=== PATIENT | female | born 1945 | race Caucasian/White ===

== ENCOUNTER 2019-10-21 06:29 | Inpatient (IN) ==
--- NOTE | 2019-09-26 23:09 | PAT Medication Instructions ---
Medication Instructions Date of Service September 26, 2019 Home Medications Medications Cholesterol Complete 3 cap PO 1200 amlodipine 5 mg PO 1200 cholecalciferol (vitamin D3) [Vitamin D3] 3,000 unit PO 1200 coQ10 (ubiquinol) 200 mg PO 1200 levothyroxine 50 mcg PO QAM magnesium 250 mg PO 1200 metoprolol succinate 25 mg PO 1200 omega 4-ibw-kzg-fish oil [[place]-3] 2 cap PO 1200] STOP taking 2 weeks before surgery Cholesterol Complete 3 cap PO 1200 coQ10 (ubiquinol) 200 mg PO 1200 omega 8-vif-iti-fish oil [[place]-3] 2 cap PO 1200] DO NOT take the morning of surgery cholecalciferol (vitamin D3) [Vitamin D3] 3,000 unit PO 1200 magnesium 250 mg PO 1200 Take morning of surgery With a small sip of water, OTHERWISE NOTHING TO EAT OR DRINK AFTER MIDNIGHT: amlodipine 5 mg PO 1200 levothyroxine 50 mcg PO QAM metoprolol succinate 25 mg PO 1200 Other Notes If you have any questions please call us at [phone] or [phone] or [phone] or [phone]
--- NOTE | 2019-09-27 11:55 | Anesthesiology Consultation ---
Date of Service September 27, 2019 Assessment & Plan (1) Encounter for pre-operative examination: Chart Review Chart Review: Acceptable Risk for Surgery and Patient seen in Pre Admission Testing Teaching & Discussion Instructed NPO after midnight before surgery, except medications with 15 cc of water. Medication instructions provided according to the PAT guidelines. History Surgery Operation Date: 10/21/19 07:00 Proposed Procedures p Right Anterior Total Hip Arthroplasty - Constantine Hernandez, Height/Weight Height: 5 ft 2 in Weight: 85 kg Allergies Allergy/AdvReac Type Severity Reaction Status Date / Time codeine AdvReac Mild SICK TO Verified 09/27/19 10:32 STOMACH Medications Home Medications Medication Instructions Recorded Confirmed Last Taken Cholesterol Complete 3 cap PO 1200 09/21/19 09/27/19 Unknown amlodipine 5 mg PO 1200 09/21/19 09/27/19 Unknown cholecalciferol (vitamin D3) 3,000 unit PO 1200 09/21/19 09/27/19 Unknown [Vitamin D3] coQ10 (ubiquinol) 200 mg PO 1200 09/21/19 09/27/19 Unknown levothyroxine 50 mcg PO QAM 09/21/19 09/27/19 Unknown magnesium 250 mg PO 1200 09/21/19 09/27/19 Unknown metoprolol succinate 25 mg PO 1200 09/21/19 09/27/19 Unknown omega 4-sax-wdh-fish oil [[place]-3] 2 cap PO 1200 09/21/19 09/27/19 Unknown Past Medical History Medical History Hyperlipidemia Hypertension Hypothyroidism Osteoarthritis Urinary frequency Exercise / Class Metabolic Activity III < 4 Walking/Shop/Light housework (Denies CP or SOB with 1 FOS but not doing 2/2 limited mobility 2/2 hip pain; using cane for ambulation) Past Family History Family History Grandfather (Paternal) Family history of diabetes mellitus Mother Family history of diabetes mellitus Past Surgical History Surgical History History of colonoscopy History of neck surgery R parotidectomy [place] teeth removed Past Anesthesia History No Hx of Anesthesia Complications and No Family Hx of Anesthesia Complications History of PONV No Hx of PONV and No Hx of Motion Sickness Social History Smoking Status: Never smoker Do You Dip or Chew Tobacco: No Hx Alcohol Use: Yes Alcohol type: wine alcohol intake frequency: holidays/special occasions only Hx Substance Use: No substance use type: does not use Review of Systems Pt denies any recent chest pain, shortness of breath, palpitations, cough, fever or URI. Physical Exam Vital Signs BP: 137/80 P: 69bpm SPO2: 95% RA T: 98.3 F R: 16 ENMT Mouth: + dental restorations (few crowns on molars); no chipped teeth and no loose teeth Thyromental Distance: > or= 3.5 Finger Breadths (4) Mallampati Class: III Neck + short neck and + limited neck extension Respiratory normal respiratory effort Auscultation: lungs clear to auscultation bilaterally Cardiovascular Rate/Rhythm: regular rate and regular rhythm Heart Sounds: no murmur Vessels: no carotid bruit Extremities: no edema Testing Laboratory Results 09/27/19 12:07 09/27/19 12:07 PT 10.1 Seconds (9.0-12.0) 09/27/19 12:07 INR 1.0 (0.9-1.1) 09/27/19 12:07 APTT 26.8 Seconds (21.0-31.0) 09/27/19 12:07 Blood Type O Positive 09/27/19 12:07 Antibody Screen NEGATIVE 09/27/19 12:07 Electrocardiogram Date: 09/27/19 Findings: + NSR @ (73bpm) LAD. Nonspecific ST abnormality. No significant change from 2009 EKG. Chest X-Ray Date: 09/27/19 Findings: + NAD
[2019-09-27 13:27] LABS: Basophils # (auto) 0.03 K/uL (0-0.2); Basophils % (auto) 0.5 %; Eosinophils # (auto) 0.12 K/uL (0-0.5); Eosinophils % (auto) 1.9 %; Hematocrit (blood only) 43.3 % (37-47); Hemoglobin 14.5 g/dL (12.0-16.0); Immature Granulocytes # (auto) 0.01 K/uL (0.00-0.02); Immature Granulocytes % (auto) 0.2 %; Lymphocytes # (auto) 2.22 K/uL (1.2-3.4); Lymphocytes % (auto) 34.7 %; Mean Corpuscular Hemoglobin 31.7 pg (25-34); Mean Corpuscular Hgb Conc 33.5 g/dL (32-36); Mean Corpuscular Volume 94.5 fL (80-100); Mean Platelet Volume 9.7 fL (7.4-10.4); Monocytes # (auto) 0.52 K/uL (0.11-0.59); Monocytes % (auto) 8.1 %; Neutrophils % (auto) 54.6 %; Platelet Count 274 K/uL (130-400); RDW Coefficient of Variation 14.4 % (11.5-14.5); RDW Standard Deviation 49.8 fL (36.4-46.3); Red Blood Count 4.58 M/uL (4.2-5.4)
--- NOTE | 2019-09-27 13:38 | XRay Report ---
XR chest Pre-admission PA/Lat CLINICAL HISTORY: Preoperative chest COMPARISON STUDY: No previous studies for comparison. FINDINGS: The cardiac and mediastinal contours are normal. There is no evidence of focal pulmonary co nsolidation. There is no evidence of failure. No pleural effusions are visualized.[ IMPRESSION: No active disease in the chest. Electronically signed by: Jose Juan Hale M.D. 09/27/2019 1:37 PM
[2019-09-27 13:39] LABS: BUN Creatinine Ratio 18.6 (10-20); Calcium 9.7 mg/dl (8.5-10.1); Creatinine Clr Calc Pharmacy 58.9 ml/min; Est GFR (African American) 77.7; Potassium 4.1 mmol/L (3.5-5.1)
[2019-09-27 13:41] LABS: Partial Thromboplastin Time 26.8 Seconds (21.0-31.0); Prothrombin Time 10.1 Seconds (9.0-12.0)
[~2019-10-21 06:29] MED LIST: ACETAMINOPHEN 500 MG TAB PO SCH; BUPIVACAINE 0.5 % 5 MG/1 ML PF 10ML VIAL ONE; CEFAZOLIN 2000MG 2,000 MG/15 ML SYR IV SCH; FAMOTIDINE 20 MG TAB PO SCH; GABAPENTIN 300 MG CAP PO SCH; LR 500ML BOLUS, THEN 15ML/HR IV SCH; LR 60ML/HR IV SCH; ROPIVACAINE 0.5% HCL/PF 150 MG, BUPIVACAINE 0.5% MPF 30 ML, EPINEPHrine 30MG/30ML (OR U... INSTIL SCH; TRANEXAMIC ACID 1,000 MG **IV Pre-op IV SCH; dexAMETHasone 4 MG TAB PO SCH
--- NOTE | 2019-10-21 06:51 | History & Physical Report ---
Date of Service October 21, 2019 Assessment & Plan (1) Osteoarthritis of right hip: We will proceed with a right anterior total hip arthroplasty. Postoperatively she will be placed on aspirin for DVT prophylaxis and kept overnight in the hospital for postoperative medical management. She plans to use outpatient physical therapy upon discharge. Present on Admission?: Yes History of Present Illness Chief Complaint: Primary osteoarthritis of the right hip Primary Care Provider: NIMESH Argueta Haleigh is a pleasant 74-year-old female who presented my office with chronic increasing right hip and groin pain. X-rays and clinical examination have been diagnostic for primary osteoarthritis of the right hip. After failing conservative treatment, she has elected to proceed with a right anterior total hip arthroplasty. Allergies Allergy/AdvReac Type Severity Reaction Status Date / Time codeine AdvReac Mild SICK TO Verified 10/10/19 11:00 STOMACH Home Medications Home Medications Medication Instructions Recorded Confirmed Type Cholesterol Complete 3 cap PO 1200 09/21/19 10/10/19 History amlodipine 5 mg PO 1200 09/21/19 10/10/19 History cholecalciferol (vitamin D3) 3,000 unit PO 1200 09/21/19 10/10/19 History [Vitamin D3] coQ10 (ubiquinol) 200 mg PO 1200 09/21/19 10/10/19 History levothyroxine 50 mcg PO QAM 09/21/19 10/10/19 History magnesium 250 mg PO 1200 09/21/19 10/10/19 History metoprolol succinate 25 mg PO 1200 09/21/19 10/10/19 History omega 1-jwl-mjk-fish oil [[place]-3] 2 cap PO 1200 09/21/19 10/10/19 History Past Med/Surg History Medical History Encounter for pre-operative examination Hyperlipidemia Hypertension Hypothyroidism Osteoarthritis Urinary frequency Surgical History History of colonoscopy History of neck surgery R parotidectomy [place] teeth removed Family History Grandfather (Paternal) Family history of diabetes mellitus Mother Family history of diabetes mellitus Social History Preferred Language: Estonian Communication Ability: Effective 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 Beliefs That Will Affect Care: None Current Living Situation: Spouse Feels Safe at Home: Yes Safety Concerns: Feels Safe At This Time Smoking Status: Never smoker Do You Dip or Chew Tobacco: No ; Second Hand Exposure: No ; Tobacco Cessation Education Requested by Patient: No Hx Alcohol Use: Yes Alcohol type: wine Hx Substance Use: No Review of Systems All systems reviewed & are unremarkable except as noted in HPI & below Physical Exam Constitutional: WD/WN, vitals as above Eyes: PERRL, conjunctivae normal, anicteric sclerae ENMT: external ear and nose normal, oropharynx normal Neck: trachea midline, no thyromegaly Respiratory: normal respiratory effort Cardiovascular: RRR, no murmur, no edema Gastrointestinal (Abdomen): normal bowel sounds, soft, nontender, no hepatosplenomegaly Musculoskeletal: Physical examination of the right hip reveals decreased range of motion with flexion, internal and external rotation. There is significant groin pain with forced internal rotation of the hip his leg lengths are essentially equal. Psychiatric: A+Ox3, euthymic affect Results & Data Diagnostic Findings Radiographs of the right hip and pelvis demonstrate advanced osteoarthritis with joint space narrowing osteophyte formation and bhqz-qa-xded articulation.
[2019-10-21] MEDS ORDERED: fentaNYL citrate 100 MCG/2 ML VIAL IV PRN (07:36)
[2019-10-21] MEDS ORDERED: MEPERIDINE HCL 25 MG/ML CARP IV PRN (07:36)
[2019-10-21] MEDS ORDERED: ePHEDrine sulfate 50 MG/ML AMP IV PRN (07:36)
[2019-10-21] MEDS ORDERED: HYDROmorphone INJ 1 MG/ML SYRINGE IV PRN (07:36)
[2019-10-21] MEDS ORDERED: LABETALOL HCL IV 5 MG/ML 20ML IV PRN (07:36)
[2019-10-21] MEDS ORDERED: PHENYLEPHRINE 100MCG/ML 5ML SYR IV PRN (07:36)
[2019-10-21] MEDS ORDERED: ATROPINE SULFATE 0.1 MG/ML 10ML SYR IV PRN (07:36)
[2019-10-21] MEDS ORDERED: ONDANSETRON INJ 2 MG/ML 2 ML VIAL IV PRN ×2 (07:36→12:24)
[2019-10-21] MEDS ORDERED: PROPOFOL IV EMULSION 10 MG/ML 20 ML VIAL IV ONE (08:03)
[2019-10-21] MEDS ORDERED: fentaNYL citrate 100 MCG/2 ML VIAL ONE (08:03)
[2019-10-21] MEDS ORDERED: MIDAZOLAM HCL 1 MG/ML 2ML VIAL ONE ×2 (08:03→09:33)
[2019-10-21] MEDS ORDERED: ORTHO JOINT ANESTHETIC ONE (08:48)
[2019-10-21] MEDS: TRANEXAMIC ACID 1,000 MG **IV Intra-op IV SCH ×2 (08:48→10:27)
--- NOTE | 2019-10-21 10:41 | Operative Report ---
PG Post Operative Report Pre & Post Diagnosis Operation Date: 10/21/19 09:10 Pre-Op Diagnosis: RIGHT HIP DEGENERATIVE JOINT DISEASE Post-Op Diagnosis: RIGHT HIP DEGENERATIVE JOINT DISEASE I identified the patient and participated in the time-out.: Yes Procedure Operation Date: 10/21/19 09:10 Actual Procedures p Right Anterior Total Hip Arthroplasty(Right) - Constantine Hernandez DO Surgeon Constantine Hernandez DO Portfolio Lead Constantine Mederos PAC Estimated Blood Loss 200 Findings Consistent with Post-Op Diagnosis Specimens Right femoral head Complications none Disposition Disposition: Recovery Room Indications Haleigh is a pleasant 74-year-old female who presented to my office with chronic increasing bilateral hip pain. X-rays and clinical examination were diagnostic for primary osteoarthritis of both hips. The right hip was more painful than the left. After failing conservative treatment, she elected proceed with a right total hip arthroplasty. Description of Procedure Implants used Biomet Taperloc total hip arthroplasty system with a size 6 standard offset Taperloc stem, a 48 mm G7 cup with a 25mm screw, an E1 polyethylene liner, a 32 mm ceramic head with a 0 neck. Patient arrived at the hospital for the above procedure. They were seen in the preoperative holding area and the operative extremity was identified and signed. They were given a spinal anesthetic. They were given a preoperative antibiotic and TXA. They were taken back To the operating room and laid on the table in the supine position. The leg was brought out through a Puristst leg positioner. The hip was then prepped and draped in sterile fashion. A timeout was done and the patient and the operative extremity was properly identified. An anterior approach was used. Dissection was taken down through the fascia and the tensor muscle belly was retracted laterally and the rectus was retracted medially. The circumflex vessels were identified and ligated. The capsule was then incised and tagged for later repair. The femoral neck was then cut and the femoral head was removed. The acetabulum was exposed. Time was spent doing a complete circumferential labral release. Sequential reaming of the acetabulum up to a size 47 reamer was done. Final reamings were done under fluoroscopy to ensure appropriate version. A Biomet 48 mm G7 cup was then impacted into place. A single 25 mm screw was placed. The E1 polyethylene liner was then snapped into place. Surrounding soft tissues were then injected with 100 cc of an orthopedic pain control cocktail. The proximal femur was then exposed. Sequential broaching up to a size 6 broach was done. Off that broach a size 32 head with a 0 neck was trialed. The hip was reduced and fluoroscopic images showed anatomic alignment of the implants in acceptable length. The broach was removed. When the broach was removed, I noticed a very small crack in the calcar. It was a very small crack and it was stable. However, I did decide to throw a cable around the proximal femur to be sure that the crack did not propagate. I used a Madan cable system. I was able to get the cable to fit nicely around the bone. Given her age and her osteoporotic bone, this is not an unexpected event. The final size 6 standard offset Taperloc stem was then impacted into place. A ceramic 32 mm head with a 0 neck was then impacted into place in the hip was reduced. Final fluoroscopic images showed anatomic reduction of the hip. The capsule was then closed with #1 Vicryl suture. A dilute betadyne lavage was then done for 3 minutes. The joint was then irrigated with normal saline solution. The fascia was closed with #1 PDS suture. Skin was closed with 2-0 Vicryl, carlo, and a Keisha VAC dressing. The patient was then transferred to a hospital bed and taken to the post anesthesia care unit in stable condition. They tolerated the procedure well. I attest to the content of the Intraoperative Record and any orders documented therein. Any exceptions are noted below.
--- NOTE | 2019-10-21 10:52 | Fluoroscopy Report ---
FL hip RT 1V CLINICAL HISTORY: RT ANTERIOR TOTAL COMPARISON STUDY: Right hip radiograph January 04, 2019 FLUOROSCOPY TIME: 25 seconds. FLUOROSCOPIC IMAGES: 2 FINDINGS: These images demonstrate a total right hip arthroplasty. Hardware is intact. There is no fr acture or unexpected radiopaque foreign body. Acetabular screw and cerclage wire are noted. IMPRESSION: Expected findings during total right hip arthroplasty. ACT 112: Negative or not required by law. Electronically signed by: Jt Walker M.D. 10/21/2019 10:50 AM
[2019-10-21] MEDS ORDERED: METOPROLOL TARTRATE 1 MG/ML VIAL IV STA (11:09)
[2019-10-21] MEDS ORDERED: METOPROLOL TARTRATE 1 MG/ML VIAL IV ONE (11:09)
--- NOTE | 2019-10-21 11:17 | Anesthesiology Progress Note ---
Date of Service October 21, 2019 Anesthesia Post Procedure Vital Signs Vital Signs: Temp Pulse Pulse Resp BP BP Pulse Ox 10/21/19 11:11 104 H 136/71 10/21/19 07:30 36.8 C 79 18 158/82 H 94 Pain Intensity Right Hip: Pain Intensity: 0 Transfer of Care Handoff Completed per policy Notes Mental Status: alert / awake / arousable Patient Amnestic to Procedure: Yes Nausea / Vomiting: adequately controlled Pain: adequately controlled Airway Patency, RR, SpO2: stable & adequate BP & HR: stable & adequate Hydration State: stable & adequate Neuraxial Anesthesia: was administered and sensory block is resolving Anesthetic Complications: no major complications apparent and Pt Satisfied with anesthetic care
--- NOTE | 2019-10-21 11:29 | XRay Report ---
XR hip 1V RT w pelvis HISTORY: 74 years-old Female IN PACU - A/P PELVIS and LATERAL HIP right hip total joint arthroplast y. History of degenerative joint disease COMPARISON: Fluoroscopic images of the right hip of same day TECHNIQUE: 2 views of the right hip FINDINGS: Satisfactory alignment of the right hip total joint arthroplasty. Lateral skin carlo are noted holley g with expected postsurgical soft tissue swelling and deep tissue air. No acute fracture or retained foreign body. Moderate left hip osteoarthritis. IMPRESSION: Satisfactory alignment of the right hip total joint arthroplasty ACT 112: Negative or not required by law. The above report was generated using voice recognition software. It may contain grammatical, syntax o r spelling errors. Electronically signed by: Esdras Campos M.D. 10/21/2019 11:27 AM
[2019-10-21] MEDS ORDERED: NALOXONE HCL 0.4 MG/1 ML VIAL/CARP IV PRN (12:24)
[2019-10-21] MEDS ORDERED: SODIUM CHLORIDE 0.9% 1000ML 1,000 ML IV SCH (12:24)
[2019-10-21] MEDS ORDERED: bisacodyL 10 MG SUPP PR PRN (12:24)
[2019-10-21] MEDS ORDERED: METOCLOPRAMIDE HCL INJ 5 MG/ML 2 ML VIAL IV PRN (13:00)
[2019-10-21] MEDS ORDERED: MAGNESIUM HYDROXIDE SUSP 30 ML UDC PO PRN (13:00)
[2019-10-21] MEDS ORDERED: HYDROmorphone INJ 0.5 MG/0.5 ML SYR IV PRN (13:00)
[2019-10-21] MEDS: ACETAMINOPHEN 500 MG TAB PO SCH ×2 (13:14→21:11)
[2019-10-21] MEDS: KETOROLAC TROMETHAMINE 15 MG/ML VIAL IV SCH ×2 (13:15→19:17)
[2019-10-21] MEDS: METOPROLOL SUCC 25MG EXT REL TAB PO SCH (13:39)
[2019-10-21] MEDS: AMLODIPINE BESYLATE 5 MG TAB PO SCH (13:40)
[2019-10-21] MEDS: CEFAZOLIN 2000MG 2,000 MG/15 ML SYR IV SCH (17:59)
[2019-10-21] MEDS: DOCUSATE SODIUM 100 MG CAP PO SCH (21:11)
[2019-10-21] MEDS: ASPIRIN 81 MG ECTAB PO SCH (21:11)
[2019-10-21] MEDS: SENNA 8.6 MG TAB PO SCH (21:11)
[2019-10-22] MEDS: CEFAZOLIN 2000MG 2,000 MG/15 ML SYR IV SCH (01:52)
[2019-10-22] MEDS: KETOROLAC TROMETHAMINE 15 MG/ML VIAL IV SCH ×4 (01:52→20:06)
[2019-10-22 05:34] LABS: Hematocrit (blood only) 37.3 % (37-47); Hemoglobin 12.7 g/dL (12.0-16.0); Immature Granulocytes # (auto) 0.03 K/uL (0.00-0.02); Immature Granulocytes % (auto) 0.2 %; Lymphocytes # (auto) 1.64 K/uL (1.2-3.4); Lymphocytes % (auto) 11.5 %; Mean Corpuscular Hemoglobin 31.6 pg (25-34); Mean Corpuscular Volume 92.8 fL (80-100); Mean Platelet Volume 9.4 fL (7.4-10.4); Monocytes % (auto) 9.1 %; Neutrophils # (auto) 11.34 K/uL (1.4-6.5); Neutrophils % (auto) 79.2 %; Platelet Count 233 K/uL (130-400); RDW Coefficient of Variation 14.2 % (11.5-14.5); RDW Standard Deviation 48.7 fL (36.4-46.3); Red Blood Count 4.02 M/uL (4.2-5.4); White Blood Count 14.31 K/uL (4.8-10.8)
[2019-10-22 05:52] LABS: BUN Creatinine Ratio 18.9 (10-20); Calcium 9.2 mg/dl (8.5-10.1); Creatinine Clr Calc Pharmacy 72.8 ml/min; Est GFR (African American) 99.6; Potassium 3.8 mmol/L (3.5-5.1)
[2019-10-22] MEDS: ACETAMINOPHEN 500 MG TAB PO SCH ×3 (05:58→22:23)
[2019-10-22] MEDS: LEVOTHYROXINE SODIUM 50 MCG TABLET PO SCH (05:58)
--- NOTE | 2019-10-22 07:39 | Electrocardiogram Report ---
Test Reason : Blood Pressure : / mmHG Vent. Rate : 096 BPM Atrial Rate : 096 BPM P-R Int : 170 ms QRS Dur : 084 ms QT Int : 316 ms P-R-T Axes : 056 -42 095 degrees QTc Int : 399 ms Normal sinus rhythm Left axis deviation Abnormal ECG When compared with ECG of 27-SEP-2019 12:03, Nonspecific T wave abnormality, worse in Inferior leads Confirmed by Srinivas Menendez ([id number]) on 10/22/2019 7:39:31 AM Referred By: Constantine Hernandez Confirmed By:Terell Menendez
[2019-10-22] MEDS ORDERED: dexAMETHasone 4 MG TAB PO SCH (08:00)
--- NOTE | 2019-10-22 08:13 | Orthopedic Progress Note ---
Date of Service October 22, 2019 Assessment & Plan (1) History of right hip replacement: Overall she is doing fairly well. The block should wear off throughout the day today. She will be seen by physical therapy this morning for ambulation and range of motion exercises. I did tell her and her family about the cable around her proximal femur. It should not affect her postoperative recovery at all. We will keep her in the hospital today. She is on aspirin for DVT prophylaxis. I plan to discharge her to home tomorrow. Present on Admission?: No Subjective Haleigh was seen and examined at bedside this morning. Overall she is doing fairly well. She is not having much pain in the right hip. The block is still working some. She says if she stands her knee darwin. Otherwise she has no complaints. Physical Exam Musculoskeletal: On physical examination of the right hip, the Keisha VAC dressing is to suction. Her leg lengths are equal. She has active dorsiflexion and plantarflexion of her right ankle. Results & Data Vital Signs (Past 12 Hours) Vital Signs Temp Pulse Resp BP Pulse Ox 10/22/19 07:29 36.5 C 72 18 151/96 H 93 10/22/19 03:10 36.6 C 66 16 145/77 H 95 10/21/19 22:38 36.6 C 64 16 120/71 96 10/21/19 20:57 36.6 C 71 16 122/71 92 Laboratory Results H & H 09/27/19 10/22/19 Range/Units 12:07 05:07 Hgb 14.5 12.7 (12.0-16.0) g/dL Hct 43.3 37.3 (37-47) % Coagulation 09/27/19 Range/Units 12:07 INR 1.0 (0.9-1.1) Diagnostic Findings Postoperative x-rays of the right hip show the prosthesis to be in anatomic alignment without any evidence of fracture dislocation or loosening. There is a cable around the proximal femur. PG Care Time/CCT Total # of Minutes Spent Total Time Spent with Patient: Total time spent is greater than 50% in coordination of care (as documented) at patient's floor/unit and/or counseling patient:
[2019-10-22] MEDS: OXYCODONE HCL IR 5 MG TAB (IMMEDIATE RELEASE) PO PRN (08:48)
[2019-10-22] MEDS: MULTIVITAMIN TAB PO SCH (08:49)
[2019-10-22] MEDS: ASPIRIN 81 MG ECTAB PO SCH ×2 (08:49→20:06)
[2019-10-22] MEDS: DOCUSATE SODIUM 100 MG CAP PO SCH ×2 (08:49→20:06)
[2019-10-22] MEDS: AMLODIPINE BESYLATE 5 MG TAB PO SCH (11:57)
[2019-10-22] MEDS: METOPROLOL SUCC 25MG EXT REL TAB PO SCH (11:58)
[2019-10-22] MEDS ORDERED: MAGNESIUM OXIDE 400 MG TAB PO SCH (12:00)
[2019-10-22] MEDS: SENNA 8.6 MG TAB PO SCH (20:06)
[2019-10-23] MEDS: KETOROLAC TROMETHAMINE 15 MG/ML VIAL IV SCH ×2 (02:45→07:26)
[2019-10-23] MEDS: ACETAMINOPHEN 500 MG TAB PO SCH (05:34)
[2019-10-23] MEDS: LEVOTHYROXINE SODIUM 50 MCG TABLET PO SCH (05:35)
--- NOTE | 2019-10-23 07:41 | Orthopedic Progress Note ---
Date of Service October 23, 2019 Assessment & Plan (1) History of right hip replacement: Overall she is doing very well. She has been ambulating well with her right hip. She is on aspirin for DVT prophylaxis. She will be seen by physical therapy again this morning for ambulation and range of motion exercises. She can be discharged home later today. She will follow-up with orthopedics in 2 weeks. Present on Admission?: No Subjective Haleigh was seen and examined at bedside this morning. Overall she is doing fairly well. She is not having much pain in her right hip. She was able to ambulate well with physical therapy. She has no complaints. Physical Exam Musculoskeletal: On physical examination of the right hip, the Keisha VAC dressing is to suction. Her leg lengths are equal. She has active dorsiflexion and plantarflexion of her right ankle. Sensation is intact. Results & Data Vital Signs (Past 12 Hours) Vital Signs Temp Pulse Resp BP Pulse Ox 10/22/19 22:50 36.5 C 75 16 144/74 H 94 PG Care Time/CCT Total # of Minutes Spent Total Time Spent with Patient: Total time spent is greater than 50% in coor dination of care (as documented) at patient's floor/unit and/or counseling patient:
--- NOTE | 2019-10-23 07:45 | Discharge Summary ---
Date of Service October 23, 2019 Admission HPI Per Admitting Provider Haleigh is a pleasant 74-year-old female who presented my office with chronic increasing right hip and groin pain. X-rays and clinical examination have been diagnostic for primary osteoarthritis of the right hip. After failing conservative treatment, she has elected to proceed with a right anterior total hip arthroplasty. Principal Diagnosis Right total hip arthroplasty Discharge Data Allergies Allergy/AdvReac Type Severity Reaction Status Date / Time codeine AdvReac Mild SICK TO Verified 10/21/19 07:28 STOMACH Consultations 10/22/19 08:00 Consult Case Management - Discharge Planning Routine Procedures Performed Operation Date: 10/21/19 09:10 Actual Procedures p Right Anterior Total Hip Arthroplasty(Right) - Constantine Hernandez DO Ordered Studies 10/21/19 09:10 FL fluoroscopy <1hr Routine FL hip RT 1V Routine Hospital Course (1) History of right hip replacement: On October 21, 2019 Haleigh arrived at [facility] and underwent a right anterior total hip arthroplasty without complication. She had a spinal anesthetic. Postoperatively she was started on aspirin for DVT prophylaxis and discharged to general orthopedic floors. Her hospital course was uneventful. On postop day #1 her H&H was stable and her pain was well controlled. She was able to participate well with physical therapy doing ambulation and range of motion exercises. On postop day #2 she continued to do well. Her pain was well controlled. She was seen once again by physical therapy. She was then discharged to home. She will follow-up with orthopedics in 2 weeks. Total Time Total Time Spent Total Time Spent (In Minutes): 20 Discharge Plan Discharge Items Patient Disposition: Home - Home Health Services Reason For Visit: RIGHT HIP DEGENERATIVE JOINT DISEASE Discharge Diagnosis: Right total hip arthroplasty Activity: As commented below Non-emergency contact: Surgeon Call non-emergency contact if: your wound has increased redness and your wound has increased drainage Follow-up/Referrals: Germaine Holden CRNP [Primary Care Provider] - Diet: Regular Addtl Attending Provider Instructions: Activity and Therapy Recommendations: * If you are using [facility] then therapy will be provided at your home until they feel you have accomplished all of your goals. * If you are using [facility] then Physical Therapy will be provided until they feel you are ready to start Outpatient Physical Therapy. * If you are not using home therapy then Outpatient Physical Therapy should start about 3-5 days from your day of surgery. Therapy will last about 6-10 weeks * You were shown a series of exercises in the hospital. Do these exercises three times each day including the exercises you were shown in physical therapy. * Get up and walk several times each day.~ For the first four weeks, try not to stand or walk for more than one hour at a time. If you do stand or walk for more than one hour, you will not hurt anything, but your leg will likely swell.~~ * As you feel comfortable, you may change from the walker or crutches to a cane and~then to independent walking. Medications: * Narcotic You will likely be sent home from the hospital with a prescription for the narcotic pain medication that worked best throughout your stay. * Aspirin Most patients will be required to take Aspirin 81mg twice a day for 6 weeks after surgery. This is obtained [id number] and a prescription is not necessary. * Other medications may be prescribed for specific circumstances. If you have any questions, please call the office at . * Resume previous home medications unless otherwise instructed TEDs/Elastic Stockings: The white elastic stockings help limit swelling and prevent blood clots from forming in your legs. The more you wear them, the more they work. Wear them for six weeks. Dressing Care: You will likely have a purple VAC dressing after surgery. This dressing will keep the incision dry and promote early healing. After about 7 days the batteries will wear out and the VAC will lose suction. Simply remove the dressing at that time and throw everything away, including the small suction machine. Then, you may leave the carlo open to air or cover them with a dry dressing so they do not rub on your pants. The carlo will be removed at your 2 week follow-up appointment. Showering: You may shower immediately with the purple VAC dressing. Let the shower spray hit your opposite side and slowly pat the plastic dry. Do not soak the dressing. After the dressing is removed you may shower normally with the carlo exposed. Let soapy water run over the carlo and pat them dry. Things To Watch For: * Drainage from the incision site that occurs more than one week after your surgery. * Increased redness at the incision site. * Fever above 102 degrees Fahrenheit. * Unusual chest pain or shortness of breath. * Call [facility] at with any of the above problems Follow-Up Visit: Follow-up with Dr. Hernandez 2-3 weeks after your day of surgery. An appointment was probably scheduled when you signed-up for surgery in the office. If you have any questions call Office Instructions: More detailed instructions as well as Frequently Asked Questions were provided in a folder by our office when you signed-up for surgery. Please review these instructions when you get home. If you have any further questions or concerns, please feel free to call the office at [phone] Pending Studies at Discharge: No Stand-Alone Forms: My [facility] [place], Smoking Cessation Medications and DC Order Prescriptions: New tramadol 50 mg tablet 50 mg PO Q6H PRN (Reason: pain) Qty: 30 RF: 0 aspirin [Ecotrin Low Strength] 81 mg Tablet,Delayed Release (Dr/Ec) 81 mg PO BID 42 Days Qty: 0 RF: 0 Continued amlodipine 5 mg Tablet 5 mg PO 1200 RF: 0 levothyroxine 50 mcg Tablet 50 mcg PO QAM RF: 0 metoprolol succinate 25 mg Tablet Extended Release 24 Hr 25 mg PO 1200 RF: 0 cholecalciferol (vitamin D3) [Vitamin D3] 25 mcg (1,000 unit) Tablet 3,000 unit PO 1200 RF: 0 coQ10 (ubiquinol) 200 mg Capsule 200 mg PO 1200 RF: 0 [place]-3 350 mg-235 mg- 90 mg-597 mg Capsule,Delayed Release(Dr/Ec) 2 cap PO 1200 RF: 0 magnesium 250 mg Tablet 250 mg PO 1200 RF: 0 Cholesterol Complete 3 cap PO 1200 RF: 0 Discharge Orders: Discharge Order (Routine); Ordered 10/23/19 Ordered By: Constantine Hernandez Admission Data Admit Date/Time: 10/21/19 11:04 Attending Provider: Constantine Hernandez Admit Provider: Constantine Hernandez Primary Care Provider: Germaine Holden
[2019-10-23] MEDS: MULTIVITAMIN TAB PO SCH (08:18)
[2019-10-23] MEDS: ASPIRIN 81 MG ECTAB PO SCH (08:18)
[2019-10-23] MEDS: DOCUSATE SODIUM 100 MG CAP PO SCH (08:18)
[2019-10-23 08:41] VITALS: BP 171/89; PULSE 74; TEMP 98.8; O2SAT 97
[2019-10-23] MEDS: OXYCODONE HCL IR 5 MG TAB (IMMEDIATE RELEASE) PO PRN (09:38)
== END 2019-10-23 10:46 | disposition home or self-care (01) | DRG 470 ==
LOC: ASU 06:29 → 3E 11:04

== ENCOUNTER 2021-04-26 07:05 | Observation (INO) ==
--- NOTE | 2021-04-19 09:01 | Anesthesiology Consultation ---
Date of Service April 19, 2021 Assessment & Plan (1) Encounter for pre-operative examination: Chart Review Chart Review: Acceptable Risk for Surgery and Patient NOT seen in Pre Admission Testing Consults Requested none History Surgery Operation Date: 04/26/21 11:30 Proposed Procedures p Total Hip Arthroplasty Uncemt Anterior - Constantine Hernandez DO Height/Weight Height: 5 ft 4 in Weight: 86.183 kg Allergies Allergy/AdvReac Type Severity Reaction Status Date / Time codeine AdvReac Mild SICK TO Verified 04/18/21 11:45 STOMACH Medications Home Medications Medication Instructions Recorded Confirmed Last Taken Cholesterol Complete 3 cap PO 1200 09/21/19 04/18/21 10/07/19 magnesium 250 mg PO 1200 09/21/19 04/18/21 10/14/19 amoxicillin 500 mg tablet 2,000 mg PO ONCE PRN #4 tab 08/24/20 04/18/21 Unknown amlodipine 5 mg tablet 5 mg PO 1200 #90 tab 11/16/20 04/18/21 Unknown levothyroxine 50 mcg tablet 50 mcg PO QAM #90 tab 11/16/20 04/18/21 Unknown metoprolol succinate 25 mg 25 mg PO 1200 #90 tab 11/16/20 04/18/21 Unknown tablet,extended release 24 hr cholecalciferol (vitamin D3) 25 5,000 unit PO 1200 tab 11/24/20 04/18/21 Unknown mcg (1,000 unit) tablet acetaminophen [Tylenol Arthritis] 1,300 mg PO Q12H PRN 04/18/21 04/18/21 Unknown it-xwd-jvdbp-calcium carb-K1 1 tab PO QAM 04/18/21 04/18/21 Unknown [Women's 50 Plus Multivitamin] Past Medical History Medical History Asymptomatic age-related postmenopausal state Encounter for pre-operative examination Hip pain Hyperlipidemia Hypertension Hypothyroidism Osteoarthritis Osteopenia Tremor of both hands PCP AWARE-NO MEDS Urgency incontinence Urinary frequency Vitamin D insufficiency Past Family History Family History Grandfather (Paternal) Family history of diabetes mellitus Mother Family history of diabetes mellitus Past Surgical History Surgical History History of colonoscopy History of neck surgery R parotidectomy History of right hip replacement (~10/2019) [place] teeth removed Social History Smoking Status: Never smoker Do You Dip or Chew Tobacco: No Hx Alcohol Use: Yes Alcohol type: wine alcohol intake frequency: other Hx Substance Use: No substance use type: does not use Lab Results Anesthesia Preop Results Results Anesthesia Widget: WBC 6.79 K/uL (4.8-10.8) 04/15/21 Hgb 14.3 g/dL (12.0-16.0) 04/15/21 Hct 43.1 % (37-47) 04/15/21 Plt 310 K/uL (130-400) 04/15/21 Na 140 mmol/L (136-145) 04/15/21 K 3.8 mmol/L (3.5-5.1) 04/15/21 Cl 106 mmol/L (98-107) 04/15/21 CO2 27 mmol/L (21-32) 04/15/21 BUN 18 mg/dl (7-18) 04/15/21 Creat 0.96 mg/dl (0.6-1.2) 04/15/21 Glucose Level 171 mg/dl (70-99) H 04/15/21 PT 9.9 Seconds (9.0-12.0) 04/15/21 PTT 25.8 Seconds (21.0-31.0) 04/15/21 INR 1.0 (0.9-1.1) 04/15/21 Blood Type O Positive 04/15/21 Antibody Screen NEGATIVE 04/15/21 Testing Electrocardiogram Date: 04/17/21 Findings: + NSR @
--- NOTE | 2021-04-19 09:04 | Anesthesiology Consultation ---
Date of Service April 19, 2021 Assessment & Plan (1) Encounter for pre-operative examination: Chart Review Chart Review: Acceptable Risk for Surgery and Patient NOT seen in Pre Admission Testing Consults Requested none History Surgery Operation Date: 04/26/21 11:30 Proposed Procedures p Total Hip Arthroplasty Uncemt Anterior - Constantine Hernandez DO Height/Weight Height: 5 ft 4 in Weight: 86.183 kg Allergies Allergy/AdvReac Type Severity Reaction Status Date / Time codeine AdvReac Mild SICK TO Verified 04/18/21 11:45 STOMACH Medications Home Medications Medication Instructions Recorded Confirmed Last Taken Cholesterol Complete 3 cap PO 1200 09/21/19 04/18/21 10/07/19 magnesium 250 mg PO 1200 09/21/19 04/18/21 10/14/19 amoxicillin 500 mg tablet 2,000 mg PO ONCE PRN #4 tab 08/24/20 04/18/21 Unknown amlodipine 5 mg tablet 5 mg PO 1200 #90 tab 11/16/20 04/18/21 Unknown levothyroxine 50 mcg tablet 50 mcg PO QAM #90 tab 11/16/20 04/18/21 Unknown metoprolol succinate 25 mg 25 mg PO 1200 #90 tab 11/16/20 04/18/21 Unknown tablet,extended release 24 hr cholecalciferol (vitamin D3) 25 5,000 unit PO 1200 tab 11/24/20 04/18/21 Unknown mcg (1,000 unit) tablet acetaminophen [Tylenol Arthritis] 1,300 mg PO Q12H PRN 04/18/21 04/18/21 Unknown kr-rln-ivrya-calcium carb-K1 1 tab PO QAM 04/18/21 04/18/21 Unknown [Women's 50 Plus Multivitamin] Past Medical History Medical History Asymptomatic age-related postmenopausal state Encounter for pre-operative examination Hip pain Hyperlipidemia Hypertension Hypothyroidism Osteoarthritis Osteopenia Tremor of both hands PCP AWARE-NO MEDS Urgency incontinence Urinary frequency Vitamin D insufficiency Past Family History Family History Grandfather (Paternal) Family history of diabetes mellitus Mother Family history of diabetes mellitus Past Surgical History Surgical History History of colonoscopy History of neck surgery R parotidectomy History of right hip replacement (~10/2019) [place] teeth removed Social History Smoking Status: Never smoker Do You Dip or Chew Tobacco: No Hx Alcohol Use: Yes Alcohol type: wine alcohol intake frequency: other Hx Substance Use: No substance use type: does not use Lab Results Anesthesia Preop Results Results Anesthesia Widget: WBC 6.79 K/uL (4.8-10.8) 04/15/21 Hgb 14.3 g/dL (12.0-16.0) 04/15/21 Hct 43.1 % (37-47) 04/15/21 Plt 310 K/uL (130-400) 04/15/21 Na 140 mmol/L (136-145) 04/15/21 K 3.8 mmol/L (3.5-5.1) 04/15/21 Cl 106 mmol/L (98-107) 04/15/21 CO2 27 mmol/L (21-32) 04/15/21 BUN 18 mg/dl (7-18) 04/15/21 Creat 0.96 mg/dl (0.6-1.2) 04/15/21 Glucose Level 171 mg/dl (70-99) H 04/15/21 PT 9.9 Seconds (9.0-12.0) 04/15/21 PTT 25.8 Seconds (21.0-31.0) 04/15/21 INR 1.0 (0.9-1.1) 04/15/21 Blood Type O Positive 04/15/21 Antibody Screen NEGATIVE 04/15/21 Testing Electrocardiogram Date: 04/17/21 Findings: + NSR @
--- NOTE | 2021-04-25 16:49 | History & Physical Report ---
Date of Service April 25, 2021 Assessment & Plan (1) Osteoarthritis of left hip: We will proceed with a left anterior total of arthroplasty. Postoperatively she will be started on aspirin for DVT prophylaxis and kept overnight in the hospital for postoperative medical management. She plans to set up home health upon discharge. History of Present Illness Chief Complaint: Osteoarthritis of the left hip. Primary Care Provider: Tj Son MD Haleigh is a pleasant 76-year-old female who is been doing with chronic increasing left hip and groin pain. She is in clinical examination have been diagnostic for advanced osteoarthritis of the left hip. She has been using a cane. Her symptoms are becoming worse. She has elected proceed with a left total hip arthroplasty. I did a right hip replacement on her in October 2019 and she is done very well with that.. Allergies Allergy/AdvReac Type Severity Reaction Status Date / Time codeine AdvReac Mild SICK TO Verified 04/26/21 07:55 STOMACH Home Medications Medication Instructions Recorded Confirmed Type Cholesterol Complete 3 cap PO 1200 09/21/19 04/26/21 History magnesium 250 mg PO 1200 09/21/19 04/26/21 History amoxicillin 500 mg tablet 2,000 mg PO ONCE PRN #4 tab 08/24/20 04/26/21 Rx amlodipine 5 mg tablet 5 mg PO 1200 #90 tab 11/16/20 04/26/21 Rx levothyroxine 50 mcg tablet 50 mcg PO QAM #90 tab 11/16/20 04/26/21 Rx metoprolol succinate 25 mg 25 mg PO 1200 #90 tab 11/16/20 04/26/21 Rx tablet,extended release 24 hr cholecalciferol (vitamin D3) 25 5,000 unit PO 1200 tab 11/24/20 04/26/21 History mcg (1,000 unit) tablet acetaminophen [Tylenol Arthritis] 1,300 mg PO Q12H PRN 04/18/21 04/26/21 History hb-mgg-syujo-calcium carb-K1 1 tab PO QAM 04/18/21 04/26/21 History [Women's 50 Plus Multivitamin] Past Med/Surg History Medical History Asymptomatic age-related postmenopausal state Encounter for pre-operative examination Hip pain Hyperlipidemia Hypertension Hypothyroidism Osteoarthritis Osteopenia Tremor of both hands PCP AWARE-NO MEDS Urgency incontinence Urinary frequency Vitamin D insufficiency Surgical History History of colonoscopy History of neck surgery R parotidectomy History of right hip replacement (~10/2019) [place] teeth removed Family History Grandfather (Paternal) Family history of diabetes mellitus Mother Family history of diabetes mellitus Social History Smoking Status: Never smoker Second Hand Exposure: No; Do You Dip or Chew Tobacco: No; Hx Alcohol Use: Yes (1-2 per year) Alcohol type: wine Hx Substance Use: No Preferred Language: [place] Communication Ability: Effective Visual Impairment: No Limitations 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 Physical Exam On physical examination of the left hip, she walks with antalgic gait. She has limited range of motion of her hip. She has pain with forced internal and external rotation.. Constitutional WD/WN, vitals as above Eyes PERRL, conjunctivae normal, anicteric sclerae ENMT external ear and nose normal, oropharynx normal Neck trachea midline, no thyromegaly Respiratory normal respiratory effort Cardiovascular RRR, no murmur, no edema Gastrointestinal (Abdomen) normal bowel sounds, soft, nontender, no hepatosplenomegaly Psychiatric A+Ox3, euthymic affect Results & Data Results & Data Laboratory Results . Diagnostic Findings X-rays of the left hip do show advanced osteoarthritis with joint space narrowing, osteophyte formation, and phnn-gt-tmeb articulation. PG Care Time/CCT Total # of Minutes Spent Total Time Spent with Patient: Total time spent is greater than 50% in coordination of care (as documented) at patient's floor/unit and/or counseling p atient: Coding Level of Care Code None Diagnoses Osteoarthritis of left hip M16.12
[~2021-04-26 07:05] MED LIST changes: -BUPIVACAINE 0.5 % 5 MG/1 ML PF 10ML VIAL ONE; -CEFAZOLIN 2000MG 2,000 MG/15 ML SYR IV SCH; -ROPIVACAINE 0.5% HCL/PF 150 MG, BUPIVACAINE 0.5% MPF 30 ML, EPINEPHrine 30MG/30ML (OR U... INSTIL SCH; +ROPIVACAINE 0.5% HCL/PF 150 MG, BUPIVACAINE 0.75% MPF 20 ML, EPINEPHrine 30MG/30ML (OR ... INSTIL SCH; +ceFAZolin 2000MG 2,000 MG/15 ML SYR IV SCH
[2021-04-26] MEDS ORDERED: BUPIVACAINE 0.5 % 5 MG/1 ML PF 10ML VIAL ONE (07:06)
[2021-04-26] MEDS ORDERED: MIDAZOLAM HCL 1 MG/ML 2ML VIAL ONE (08:25)
[2021-04-26] MEDS ORDERED: LIDOCAINE 2% 2 ML VIAL/AMP(20MG/ML) INFIL ONE (08:25)
[2021-04-26] MEDS ORDERED: fentaNYL citrate 100 MCG/2 ML VIAL ONE (08:25)
[2021-04-26] MEDS ORDERED: DEXAMETHASONE SOD INJ 4 MG/ML VIAL ONE (08:25)
[2021-04-26] MEDS ORDERED: PROPOFOL IV EMULSION 10 MG/ML 20 ML VIAL IV ONE (08:25)
--- NOTE | 2021-04-26 09:21 | History & Physical Bridge Note ---
Date of Service April 26, 2021 History & Physical Bridge Note I have examined the patient, reviewed the History & Physical and in the interval since the performance of the History & Physical I have noted the following changes of clinical significance: no changes noted
[2021-04-26] MEDS ORDERED: ATROPINE SULFATE 0.1 MG/ML 10ML SYR IV PRN (09:40)
[2021-04-26] MEDS ORDERED: ePHEDrine sulfate 50 MG/ML AMP IV PRN (09:40)
[2021-04-26] MEDS ORDERED: fentaNYL citrate 100 MCG/2 ML VIAL IV PRN (09:40)
[2021-04-26] MEDS ORDERED: ONDANSETRON INJ 2 MG/ML 2 ML VIAL IV PRN ×2 (09:40→13:20)
[2021-04-26] MEDS ORDERED: ORTHO JOINT ANESTHETIC ONE (09:48)
[2021-04-26] MEDS ORDERED: TRANEXAMIC ACID / 0.7% NACL 1,000 MG/100 ML BAG IV ONE (10:49)
[2021-04-26] MEDS ORDERED: GLYCOPYRROLATE 0.2 MG/ML VIAL ONE (11:52)
[2021-04-26] MEDS ORDERED: PHENYLEPHRINE 100MCG/ML 5ML SYR ONE (11:52)
--- NOTE | 2021-04-26 11:52 | Operative Report ---
PG Post Operative Report Pre & Post Diagnosis Operation Date: 04/26/21 09:30 Pre-Op Diagnosis: Left Hip Osteorthritis Post-Op Diagnosis: Left Hip Osteorthritis I identified the patient and participated in the time-out.: Yes Procedure Operation Date: 04/26/21 09:30 Actual Procedures p Left Anterior Total Hip Replacement(Left) - Constantine Hernandez DO Surgeon Constantine Hernandez DO Communications Programmer Constantine Mederos PAC Estimated Blood Loss 250 Findings Consistent with Post-Op Diagnosis Specimens Left humeral head Complications none Disposition Disposition: Recovery Room Indications Haleigh is a pleasant 76-year-old female who is been dealing with chronic increasing left hip and groin pain. X-rays and clinical examination have been diagnostic for advanced osteoarthritis of the left hip. After failing conservative treatment, she elected proceed with a left anterior total hip arthroplasty. Description of Procedure Implants used I used a ZimmerBiomet total hip arthroplasty system with a size 1 standard offset Avenir Complete stem, a 48 mm G7 cup with a 25mm screw, an E1 polyethylene liner, a 32 mm ceramic head with a +3.5 neck. Haleigh arrived at the hospital for the above procedure. She was seen in the preoperative holding area and the operative extremity was identified and signed. She was given a spinal anesthetic, a preoperative antibiotic, and TXA. She was then taken back to the operating room and laid on the table in the supine position. She was given basic sedation. The operative leg was secured to a Puristst leg positioner. The hip was then prepped and draped in sterile fashi on. A timeout was done and the patient and the operative extremity was properly identified. An anterior approach was used. Dissection was taken down through the fascia and the tensor muscle belly was retracted laterally and the rectus was retracted medially. The circumflex vessels were identified and ligated. The capsule was then incised and tagged for later repair. The femoral neck was then cut and the femoral head was removed. The acetabulum was exposed. Time was spent doing a complete circumferential labral release. Sequential reaming of the acetabulum up to a size 47 reamer was done. Final reamings were done under fluoroscopy to ensure appropriate version. A Biomet 48 mm G7 cup was then impacted into place. A single 25 mm screw was placed. The E1 polyethylene liner was then snapped into place. Surrounding soft tissues were then injected with 100 cc of an orthopedic pain control cocktail. The proximal femur was then exposed. Sequential broaching up to a size 1 broach was done. Off that broach a size 32 head with a +3.5 neck was trialed. The hip was reduced and fluoroscopic images showed anatomic alignment of the implants in acceptable length. The broach was removed. The final size 1 high offset Avenir Complete stem was then impacted into place. A ceramic 32 mm head with a +3.5 neck was then impacted onto the stem and the hip was reduced. Final fluorosco pic images showed anatomic alignment of the hip. The capsule was then closed with #1 Vicryl suture. A dilute betadyne lavage was then done for 3 minutes. The joint was then irrigated with normal saline solution. The fascia was closed with #1 PDS suture. Skin was closed with 2-0 Vicryl, carlo, and a Silverlon dressing. She was then transferred to a hospital bed and taken to the post anesthesia care unit in stable condition. She tolerated the procedure well. Constantine Mederos PA-C, was present for the entire procedure. He was critical for patient positioning, prepping, draping, retraction exposure, wound closure and application of sterile dressing. I attest to the content of the Intraoperative Record and any orders documented therein. Any exceptions are noted below.
--- NOTE | 2021-04-26 12:18 | Fluoroscopy Report ---
INTRAOPERATIVE RADIOGRAPH CLINICAL HISTORY: Left hip arthroplasty procedure. Fluoroscopy time: 14 seconds. FINDINGS: A single spot fluoroscopic view of the left hip is presented. A bipolar left hip arthroplas ty is in near-anatomic alignment. A single cortical lag screw transfixes the acetabular cup. There is no evidence of acute fracture on this single spot image. IMPRESSION: Intraoperative left hip arthroplasty image as above. Electronically signed by: Tj Joseph M.D. 04/26/2021 12:17 PM
--- NOTE | 2021-04-26 12:46 | XRay Report ---
AP PELVIS, CROSSTABLE LATERAL LEFT HIP History: Left total hip arthroplasty. Degenerative arthritis. Postop. FINDINGS: The patient is status post a left total hip arthroplasty. The hardware is intact. No fractu re or dislocation. Evidence for prior right total hip arthroplasty. IMPRESSION: Left total hip arthroplasty. No evidence for hardware complication. ACT 112: Negative or not required by law. Electronically signed by: Edmundo Vu M.D. 04/26/2021 12:45 PM
[2021-04-26] MEDS ORDERED: HYDROmorphone INJ 0.5 MG/0.5 ML SYR IV PRN (13:20)
[2021-04-26] MEDS ORDERED: oxyCODONE HCL IR 5 MG TAB (IMMEDIATE RELEASE) PO PRN (13:20)
[2021-04-26] MEDS ORDERED: NALOXONE HCL 0.4 MG/1 ML VIAL/CARP IV PRN (13:20)
[2021-04-26] MEDS ORDERED: bisacodyL 10 MG SUPP PR PRN (13:20)
[2021-04-26] MEDS ORDERED: METOCLOPRAMIDE HCL INJ 5 MG/ML 2 ML VIAL IV PRN (13:20)
[2021-04-26] MEDS ORDERED: MAGNESIUM HYDROXIDE SUSP 30 ML UDC PO PRN (13:20)
--- NOTE | 2021-04-26 13:27 | Anesthesiology Progress Note ---
Date of Service April 26, 2021 Anesthesia Post Procedure Vital Signs Vital Signs: Temp Pulse Resp BP Pulse Ox 04/26/21 12:55 97.7 F 71 16 128/66 97 04/26/21 12:45 97.7 F 74 17 129/66 99 04/26/21 12:35 79 26 H 120/68 100 04/26/21 12:25 79 16 128/66 100 04/26/21 12:16 97.0 F L 82 16 116/66 99 04/26/21 07:46 98.1 F 70 20 168/83 H 98 Transfer of Care Handoff Completed per policy Notes Mental Status: alert / awake / arousable and participated in evaluation Patient Amnestic to Procedure: Yes Nausea / Vomiting: adequately controlled Pain: adequately controlled Airway Patency, RR, SpO2: stable & adequate BP & HR: stable & adequate Hydration State: stable & adequate Neuraxial Anesthesia: was administered and sensory block is resolving Anesthetic Complications: no major complications apparent and Pt Satisfied with anesthetic care
[2021-04-26] MEDS: SODIUM CHLORIDE 0.9% 1000ML 1,000 ML IV SCH ×2 (14:00→23:13)
[2021-04-26] MEDS: ACETAMINOPHEN 500 MG TAB PO SCH ×2 (15:06→21:59)
[2021-04-26] MEDS: KETOROLAC TROMETHAMINE 15 MG/ML VIAL IV SCH ×3 (15:06→23:10)
[2021-04-26] MEDS: ceFAZolin 2000MG 2,000 MG/15 ML SYR IV SCH (18:01)
[2021-04-26] MEDS ORDERED: SENNA 8.6 MG TAB PO SCH (21:00)
[2021-04-26] MEDS: DOCUSATE SODIUM 100 MG CAP PO SCH (21:58)
[2021-04-26] MEDS: ASPIRIN 81 MG ECTAB PO SCH (21:58)
[2021-04-26] MEDS ORDERED: NURSING DECISION MEDICATION PRN (22:05)
[2021-04-26] MEDS ORDERED: COUGH DROP (SUGAR FREE) LOZ 24 LOZ/1 BOX BUCCAL PRN (22:19)
[2021-04-27] MEDS: ceFAZolin 2000MG 2,000 MG/15 ML SYR IV SCH (01:26)
[2021-04-27] MEDS: ACETAMINOPHEN 500 MG TAB PO SCH (06:13)
[2021-04-27] MEDS: KETOROLAC TROMETHAMINE 15 MG/ML VIAL IV SCH (06:15)
[2021-04-27] MEDS ORDERED: LEVOTHYROXINE SODIUM 50 MCG TABLET PO SCH (06:30)
--- NOTE | 2021-04-27 07:03 | Orthopedic Progress Note ---
Date of Service April 27, 2021 Assessment & Plan (1) Status post left hip replacement: Overall she is doing very well. She is not any much pain in the left hip. She will be seen by physical therapy today for ambulation and range of motion exercises. She is on aspirin for DVT prophylaxis. She can be discharged home later today. She will follow-up with orthopedics in 2 weeks. Juarez Ricardo was seen and examined at bedside this morning. Overall she is doing very well. She is not having much pain in the left hip. She has been up and ambulating to the bathroom. She has no complaints.. Review of Systems All systems reviewed & are unremarkable except as noted in HPI & below. Physical Exam On physical examination of the left hip, the dressing is clean and dry. She has active dorsiflexion plantarflexion of her left ankle. Her leg lengths are equal.. Results & Data Results & Data Laboratory Results . Diagnostic Findings X-rays of the left hip show the prosthesis to be in anatomic alignment without any evidence of fracture, dislocation, or loosening. PG Care Time/CCT Total # of Minutes Spent Total Time Spent with Patient: Total time spent is greater than 50% in coordination of care (as documented) at patient's floor/unit and/or counseling patient: Coding Level of Care Code 49564 Post Operative Follow-Up Diagnoses Status post left hip replacement Z96.642
--- NOTE | 2021-04-27 07:04 | Discharge Summary ---
Date of Service April 27, 2021 Admission HPI (Per Admitting) Haleigh is a pleasant 76-year-old female who is been doing with chronic increasing left hip and groin pain. She is in clinical examination have been diagnostic for advanced osteoarthritis of the left hip. She has been using a cane. Her symptoms are becoming worse. She has elected proceed with a left total hip arthroplasty. I did a right hip replacement on her in October 2019 and she is done very well with that.. Admission Exam (Per Admitting) On physical examination of the left hip, she walks with antalgic gait. She has limited range of motion of her hip. She has pain with forced internal and external rotation.. Principal Diagnosis Same as "Discharge Diagnosis" noted below under Discharge Instructions. Discharge Exam On physical examination of the left hip, the dressing is clean and dry. She has active dorsiflexion plantarflexion of her left ankle. Her leg lengths are equal.. Discharge Data Procedures Performed Operation Date: 04/26/21 09:30 Actual Procedures p Left Anterior Total Hip Replacement(Left) - Constantine Hernandez DO Ordered Studies 04/26/21 09:30 FL hip LT 1V Routine Hospital Course (1) Status post left hip replacement: On April 26, 2021 Haleigh arrived at [facility] and underwent a left hip replacement without complication. She had a spinal anesthetic. Postoperatively she was started on aspirin for DVT prophylaxis and was transferred to the general orthopedic floors. Her hospital course was uneventful. On postop day #1 her vital signs were stable and her pain was well controlled. She was able to participate well with physical therapy doing ambulation and range of motion exercises. She was then discharged home. She will follow-up with orthopedics in 2 weeks. PG Care Time/CCT Total # of Minutes Spent Total Time Spent with Patient: Total time spent is greater than 50% in coordination of care (as documented) at patient's floor/unit and/or counseling patient: Discharge Plan Discharge Items Patient Disposition: Home - Home Health Services Reason For Visit: Left Hip Osteorthritis Discharge Diagnosis: Left hip replacement Activity: As commented below Non-emergency contact: Surgeon Call non-emergency contact if: your wound has increased redness and your wound has increased drainage Follow-up/Referrals: Tj Son MD [Primary Care Provider] - Diet: Regular Addtl Attending Provider Instructions: Activity and Therapy Recommendations: * If you are using [facility] then therapy will be provided at your home until they feel you have accomplished all of your goals. * If you are using [facility] then Physical Therapy will be provided until they feel you are ready to start Outpatient Physical Therapy. * If you are not using home therapy then Outpatient Physical Therapy should start about 3-5 days from your day of surgery. Therapy will last about 6-10 weeks * You were shown a series of exercises in the hospital. Do these exercises three times each day including the exercises you were shown in physical therapy. * Get up and walk several times each day.~ For the first four weeks, try not to stand or walk for more than one hour at a time. If you do stand or walk for more than one hour, you will not hurt anything, but your leg will likely swell.~~ * As you feel comfortable, you may change from the walker or crutches to a cane and~then to independent walking. Medications: * Narcotic You will likely be sent home from the hospital with a prescription for the narcotic pain medication that worked best throughout your stay. * Aspirin Most patients will be required to take Aspirin 81mg twice a day for 6 weeks after surgery. This is obtained [id number] and a prescription is not necessary. * Other medications may be prescribed for specific circumstances. If you have any questions, please call the office at . * Resume previous home medications unless otherwise instructed TEDs/Elastic Stockings: The white elastic stockings help limit swelling and prevent blood clots from forming in your legs. The more you wear them, the more they work. Wear them for six weeks. Dressing Care: Leave the Silverlon dressing in place for 7 days. After 7 days you may remove the dressing. If the incision is not draining then you may leave the carlo open to air. If there is a little bit of drainage or if the carlo are getting stuck on your clothing then cover the incision with a dry dressing. The carlo will be removed at your 2 week follow-up appointment. Showering: You may shower with the Silverlon dressing in place. Do not let the shower spray hit the dressing directly. Pat the Silverlon dressing dry. If the dressing becomes wet underneath, then simply remove the dressing. Keep the incision dry until you are 7 days out from the day of surgery. After 7 days you may remove the Silverlon dressing and shower with the carlo exposed. Let soapy water run over the carlo and pat them dry. Do not scrub or soak the incision. Things To Watch For: * Drainage from the incision site that occurs more than one week after your surgery. * Increased redness at the incision site. * Fever above 102 degrees Fahrenheit. * Unusual chest pain or shortness of breath. * Call [facility] at with any of the above problems Follow-Up Visit: Follow-up with Dr. Hernandez's PA (Constantine Mederos) 2-3 weeks after your day of surgery. He will remove your carlo and answer any questions. If you have any additional questions or concerns, Dr Hernandez is usually in the office at the same time and will be available An appointment was probably scheduled when you signed-up for surgery in the office. If you have any questions call Office Instructions: More detailed instructions as well as Frequently Asked Questions were provided in a folder by our office when you signed-up for surgery. Please review these instructions when you get home. If you have any further questions or concerns, please feel free to call the office at [phone] Pending Studies at Discharge: No Stand-Alone Forms: [facility], Smoking Cessation Medications and DC Order Prescriptions: New oxycodone 5 mg Tablet 5 mg PO Q4H PRN (Reason: pain) Qty: 40 RF: 0 aspirin 81 mg Tablet,Delayed Release (Dr/Ec) 81 mg PO BID 42 Days Qty: 84 RF: 0 Continued amoxicillin 500 mg tablet 2,000 mg PO ONCE PRN (Reason: prophylaxis) Qty: 4 RF: 2 cholecalciferol (vitamin D3) [Vitamin D3] 25 mcg (1,000 unit) tablet 5,000 unit PO 1200 RF: 0 levothyroxine 50 mcg tablet 50 mcg PO QAM Qty: 90 RF: 3 amlodipine 5 mg tablet 5 mg PO 1200 Qty: 90 RF: 3 metoprolol succinate 25 mg tablet extended release 24 hr 25 mg PO 1200 Qty: 90 RF: 3 magnesium 250 mg Tablet 250 mg PO 1200 RF: 0 Cholesterol Complete 3 cap PO 1200 RF: 0 Women's 50 Plus Multivitamin 400 mcg-500 mg calcium-20 mcg tablet 1 tab PO QAM RF: 0 acetaminophen [Tylenol Arthritis] 650 mg Tablet Extended Release 1,300 mg PO Q12H PRN (Reason: Pain) RF: 0 Discharge Orders: Discharge Order (Routine); Ordered 04/27/21 Ordered By: Constantine Hernandez Admission Data Admit Date/Time: 04/26/21 12:21 Attending Provider: Constantine Hernandez Admit Provider: Constantine Hernandez Primary Care Provider: Tj Son
[2021-04-27] MEDS ORDERED: dexAMETHasone 4 MG TAB PO SCH (08:00)
[2021-04-27] MEDS ORDERED: MULTIVITAMIN TAB PO SCH (09:00)
[2021-04-27] MEDS: ASPIRIN 81 MG ECTAB PO SCH (09:27)
[2021-04-27] MEDS: DOCUSATE SODIUM 100 MG CAP PO SCH (09:27)
[2021-04-27] MEDS ORDERED: amLODIPine BESYLATE 5 MG TAB PO SCH (12:00)
[2021-04-27] MEDS ORDERED: METOPROLOL SUCC 25MG EXT REL TAB PO SCH (12:00)
== END 2021-04-27 13:13 | disposition home health service (06) ==
LOC: ASU 07:05 → 3E 07:05